=== PATIENT | male | born 1930 | race Caucasian/White ===

== ENCOUNTER 2017-02-04 01:11 | Emergency (ER) | payer MEDICARE, OTHER ==
[~2017-02-04] VITALS: Ht 182.9 cm; Wt 86.2 kg
[2017-02-04 01:18] VITALS: BP 113/66
--- NOTE | 2017-02-04 01:26 | NUR ---
PATIENT BIB ALS TO ER BED 5.
--- NOTE | 2017-02-04 01:52 | NUR ---
Patient being evaluated by physician at bedside.
--- NOTE | 2017-02-04 02:04 | NUR ---
86Y M FROM [facility], FOUND PT ON THE GROUND AND NO WITNESSES HOW PT FELL ON THE GROUND.NO DISTRESS NOTED. ABRASIONS TO TOP OF HEAD, FOREHEAD AND ARMS NOTED.
[2017-02-04 04:10] VITALS: BP 113/66
--- NOTE | 2017-02-04 04:10 | NUR ---
Patient discharged with v/s stable. Written and verbal after care instructions given and explained. Patient verbalized understanding. Ambulance Transport with to home. All questions addressed prior to discharge. Advised to follow up with PMD.
== END 2017-02-04 04:10 ==
LOC: MED 01:11
DX: S01.91XA Laceration without foreign body of unspecified part of head, initial encounter (principal); W19.XXXA Unspecified fall, initial encounter; Y93.89 Activity, other specified; Y92.89 Other specified places as the place of occurrence of the external cause; Y99.8 Other external cause status